=== PATIENT | male | born 1970 ===

== ENCOUNTER 2019-04-22 04:07 | Outpatient (CLI) | payer BC | END 2019-04-22 23:59 | disposition home or self-care (01) | LOC: DIABETIC 04:07 | PROVIDERS: ATTEND Specialist | DX: E11.9 Type 2 diabetes mellitus without complications (principal); Z79.84 Long term (current) use of oral hypoglycemic drugs | CPT/HCPCS: G0108 ==

== ENCOUNTER 2019-05-22 02:08 | Outpatient (CLI) | payer BC | END 2019-05-22 23:59 | disposition home or self-care (01) | LOC: DIABETIC 02:08 | PROVIDERS: ATTEND Specialist | DX: E11.65 Type 2 diabetes mellitus with hyperglycemia (principal); Z79.84 Long term (current) use of oral hypoglycemic drugs | CPT/HCPCS: G0108 ==